=== PATIENT | female | born 1950 | race Caucasian/White ===

== ENCOUNTER 2020-05-07 10:33 | Observation (INO) | payer OTHER, MEDICARE ==
[~2020-05-07] VITALS: Ht 160 cm; Wt 52.8 kg
[2020-05-07 11:30] LABS: EOSINOPHILS % (AUTO) 3.5 % (0.0-8.0); HEMATOCRIT 39.6 % (36-48); LYMPHOCYTES % (AUTO) 25.4 % (21.0-51.0); MEAN CORPUSCULAR HEMOGLOBIN 29.8 pg (27.0-33.0); MEAN CORPUSCULAR HGB CONC 34.3 g/dL (32.0-36.0); MEAN CORPUSCULAR VOLUME 86.8 fL (79-99); MONOCYTES % (AUTO) 8.5 % (3.0-13.0); NEUTROPHILS % (AUTO) 61.4 % (40.0-77.0); PLATELET COUNT (AUTO) 238 K/uL (130-400); RED BLOOD CELL COUNT(AUTO) 4.56 MIL/uL (4.00-5.50); RED CELL DISTRIBUTION WIDTH 13.1 % (11.0-15.5); WHITE BLOOD COUNT (AUTO) 4.9 K/uL (4.8-10.8)
[2020-05-07 11:41] LABS: CREATININE 0.9 mg/dL (0.5-1.5); POTASSIUM 3.2 mmol/L (3.5-5.1)
[2020-05-07 11:45] LABS: INR 0.98 (0.85-1.15); PROTHROMBIN TIME 10.7 SEC (9.6-11.6)
[2020-05-07 11:47] LABS: PARTIAL THROMBOPLASTIN TIME 24.6 SEC (26.3-35.5)
[2020-05-07 11:54] LABS: ALBUMIN 3.9 g/dL (3.5-5.0); BILIRUBIN,TOTAL 0.9 mg/dL (0.2-1.0); TOTAL PROTEIN, SERUM 7.3 g/dL (6.0-8.3)
[2020-05-07] MEDS ORDERED: POTASSIUM CHLORIDE 20 MEQ ERTAB PO ONE (11:54)
[2020-05-07] MEDS: POTASSIUM CHLORIDE 20 MEQ ERTAB PO SCH (12:45)
[2020-05-07] MEDS: LACTATED RINGERS 1000ML 1,000 ML IV SCH (12:45)
[2020-05-07] MEDS ORDERED: TRAMADOL /APAP 37.5MG/325MG TAB PO PRN (13:00)
[2020-05-07 13:25] LABS: APPEARANCE,URINE Clear (CLEAR); BILIRUBIN,URINE Negative (NEGATIVE); COLOR,URINE Yellow (YELLOW); GLUCOSE, URINE (UA) Negative (NEGATIVE); KETONES,URINE Trace mg/dL (NEGATIVE); LEUKOCYTE ESTERASE ,URINE Trace (NEGATIVE); NITRATE,URINE Negative (NEGATIVE); OCCULT BLOOD,URINE Negative (NEGATIVE); PH,URINE 6.5 (5.0-8.0); PROTEIN,URINE Negative (NEGATIVE)
[2020-05-07 13:31] LABS: AMPHET/METH SCREEN,URINE NEGATIVE (NEGATIVE); BARBITURATE SCREEN, URINE NEGATIVE (NEGATIVE); BENZODIAZEPINES SCREEN,URINE POSITIVE (NEGATIVE); CANNABINOID SCREEN,URINE POSITIVE (NEGATIVE); COCAINE SCREEN,URINE NEGATIVE (NEGATIVE); OPIATE SCREEN,URINE NEGATIVE (NEGATIVE); PHENCYCLIDINE SCREEN,URINE NEGATIVE (NEGATIVE)
[2020-05-07 14:26] LABS: BACTERIA,URINE Few /HPF (None Seen); RBC,URINE 0-1 /HPF (0-1); SQUAMOUS EPITHELIAL CELL,UR Few /HPF (0-2)
[2020-05-07] MEDS ORDERED: FAMOTIDINE 20MG TAB 20 MG TAB ONE ×2 (14:46→20:48)
[2020-05-07] MEDS ORDERED: LACTATED RINGERS 1000ML 1,000 ML IV ONE (14:46)
[2020-05-07] MEDS: FAMOTIDINE 20MG TAB 20 MG TAB PO SCH (21:00)
[2020-05-08] VITALS (9 sets, daily range): BP systolic 103–161; BP diastolic 53–87
[2020-05-08] MEDS ORDERED: LEVO100T12 PO (00:43)
[2020-05-08] MEDS ORDERED: PREG75 PO (00:43)
[2020-05-08] MEDS ORDERED: LOSA1TAB37 PO (00:43)
[2020-05-08] MEDS: LACTATED RINGERS 1000ML 1,000 ML IV SCH (02:43)
[2020-05-08 06:02] LABS: HEMATOCRIT 37.1 % (36-48); MEAN CORPUSCULAR HEMOGLOBIN 29.1 pg (27.0-33.0); MEAN CORPUSCULAR HGB CONC 33.7 g/dL (32.0-36.0); MEAN CORPUSCULAR VOLUME 86.3 fL (79-99); PLATELET COUNT (AUTO) 205 K/uL (130-400); RED CELL DISTRIBUTION WIDTH 12.9 % (11.0-15.5)
[2020-05-08 07:36] LABS: BASOPHILS % (MANUAL) 7 % (0-2); LYMPHOCYTES % (MANUAL) 35 % (22-44); MAN.DIFF COMMENT-IMPRESSION MANUAL DIFFERENTIAL; MONOCYTES % (MANUAL) 15 % (2-9); SEGMENTED NEUTROPHILS % 43 % (40-70)
[2020-05-08 07:38] LABS: PLATELET MORPHOLOGY COMMENT ADEQUATE
[2020-05-08 07:44] LABS: RAPID PLASMA REAGIN NONREACTIVE (NONREACTIVE)
[2020-05-08] MEDS ORDERED: GADODIAMIDE 10 MMOL/20 ML VIAL IV ONE (08:31)
[2020-05-08] MEDS: FAMOTIDINE 20MG TAB 20 MG TAB PO SCH ×2 (09:00→19:57)
[2020-05-08] MEDS: POTASSIUM CHLORIDE 20 MEQ ERTAB PO SCH (12:45)
[2020-05-08] MEDS: PREGABALIN 25 MG CAP PO SCH (19:57)
[2020-05-09] VITALS: BP 108/64
[2020-05-09 04:00] VITALS: BP 143/62
[2020-05-09 05:20] LABS: BASOPHILS % (AUTO) 1.3 % (0.0-5.0); EOSINOPHILS % (AUTO) 5.5 % (0.0-8.0); HEMATOCRIT 34.9 % (36-48); LYMPHOCYTES % (AUTO) 34.9 % (21.0-51.0); MEAN CORPUSCULAR HEMOGLOBIN 29.3 pg (27.0-33.0); MEAN CORPUSCULAR HGB CONC 33.5 g/dL (32.0-36.0); MEAN CORPUSCULAR VOLUME 87.3 fL (79-99); NEUTROPHILS % (AUTO) 46.1 % (40.0-77.0); PLATELET COUNT (AUTO) 192 K/uL (130-400); RED CELL DISTRIBUTION WIDTH 12.9 % (11.0-15.5); WHITE BLOOD COUNT (AUTO) 4.8 K/uL (4.8-10.8)
[2020-05-09 05:38] LABS: POTASSIUM 3.9 mmol/L (3.5-5.1)
[2020-05-09] MEDS: LACTATED RINGERS 1000ML 1,000 ML IV SCH (06:42)
[2020-05-09 07:30] VITALS: BP 128/61
[2020-05-09] MEDS: FAMOTIDINE 20MG TAB 20 MG TAB PO SCH (09:57)
[2020-05-09] MEDS: PREGABALIN 25 MG CAP PO SCH (09:57)
[2020-05-09 11:00] VITALS: BP 133/85
[2020-05-09] MEDS: POTASSIUM CHLORIDE 20 MEQ ERTAB PO SCH (12:54)
[2020-05-09 16:00] VITALS: BP 162/84
== END 2020-05-09 18:00 | disposition home or self-care (01) ==
LOC: EDH 10:33 → EDHIP 12:35 → 3DH 05-08 00:32
PROVIDERS: ADMIT Internal Medicine; ATTEND Internal Medicine
DX: S05.11XA Contusion of eyeball and orbital tissues, right eye, initial encounter (principal); R55 Syncope and collapse; R29.6 Repeated falls; S40.011A Contusion of right shoulder, initial encounter; S70.01XA Contusion of right hip, initial encounter; G40.909 Epilepsy, unspecified, not intractable, without status epilepticus; E87.6 Hypokalemia; I10 Essential (primary) hypertension; B02.29 Other postherpetic nervous system involvement; Z87.891 Personal history of nicotine dependence; Z98.51 Tubal ligation status; Z98.82 Breast implant status; W01.0XXA Fall on same level from slipping, tripping and stumbling without subsequent striking against object, initial encounter; Y93.89 Activity, other specified; Y92.010 Kitchen of single-family (private) house as the place of occurrence of the external cause
CPT/HCPCS: 36415 ×3; 70450; 70486; 70553; 71045; 72125; 73030; 73502; 80048 ×2; 80053; 80305; 81001; 82607; 82746; 83735; 84145; 84443; 84484; 85025 ×3; 85610; 85730; 86592; 86701; 87390; 93005; 93306; 93356; 93880; 96360; 96361 ×2; 97039 ×3; 97116; 97161; 99285; A9579; G0378 ×51; G8978; G8979; G8980; G8981; G8982; G8983; J7120 ×3

== ENCOUNTER → 2020-08-19 | Outpatient (CLI) | payer OTHER, MEDICARE ==
[~2020-08-19] MED LIST: LEVO100T12 PO; LOSA1TAB37 PO
== END | disposition home or self-care (01) ==
LOC: RAH 08:44
PROVIDERS: ATTEND Psychiatry & Neurology Neurology
DX: M50.123 Cervical disc disorder at C6-C7 level with radiculopathy (principal); M48.02 Spinal stenosis, cervical region
CPT/HCPCS: 72141